=== PATIENT | male | born 2000 | race Caucasian/White ===

== ENCOUNTER 2021-12-16 15:16 | Emergency (ER) | payer OTHER, SELFPAY ==
[2021-12-16 15:40] VITALS: BP 142/80; PULSE 72; RESP 19; TEMP 36.9; O2SAT 97; BMI 17.4
--- NOTE | 2021-12-16 16:02 | HMH.EDUTC ---
[facility] [place] Disposition Clinical Impression: Sinusitis Qualifiers: Sinusitis location: unspecified location Chronicity: unspecified Qualified Code(s): J32.9 - Chronic sinusitis, unspecified Disposition: Home, Self-Care Condition on Discharge: Good Instructions: Sinusitis, DI for Sinusitis Additional Instructions: *Monitor Temp, Over the counter Motrin or Tylenol as directed/as needed Tylenol every 4 hours and Motrin every 6 hours (as long as your family doctor has told you that you can take it) for fever or pain. and straight to ER if unable to lower temp less than 101.0 after medication given *Warm salt water gargles may help to soothe the throat *Throat Lozenges *Warm fluids like tea with honey may help to soothe the throat *Sleep elevated *Humidifier/Vaporizer Follow up IMMEDIATELY for new or worsening symptoms or no Noticeable improvement over the next 48-72 hours. 911 for difficulty breathing or swallowing You were tested for today for Upper Respiratory Panel with COVID19 your test result should be back in the next 24-48 hours, your results will be available to view on the [facility] My Health Portal Make sure to take your Vitamins Vit. C Vit D and Zinc if you can take them Referrals: Provider,Referral, MD [Primary Care Provider] - As needed Forms: Work/School Release Time of Disposition: 16:07 Medical Decision Making - Chandler Inquiry Pt receiving controlled substance: No Chandler was queried for this patient: No Vital Signs: 12/16/21 15:40 Temperature 98.4 F Temperature Source Oral Pulse Rate [Right Brachial] 72 Respiratory Rate 19 Blood Pressure [Right Arm] 142/80 H Blood Pressure Mean [Right Arm] 100 Blood Pressure Source [Right Arm] Automatic Cuff Blood Pressure Position [Right Arm] Sitting 02 Sat by Pulse Oximetry 97 Oxygen Delivery Method Room Air Orders (Tests/Meds): ORDERS Category Date Time Status Full Resp Panel w/COVID ([facility]) Routine Lab 12/16/21 15:39 Ordered [facility] [place] HPI - General Stated complaint: congestion Time Seen by Provider: 12/16/21 16:02 Mode of Arrival: Ambulatory Source of Information: Patient Limitations: No Limitations Description of Symptoms (Recalled from Triage Doc. by RN): PATIENT C/O RUNNY NOSE, CHEST CONGESTION, AND SOA HEENT Symptoms (Recalled from RN notes): Yes Resp Symptoms (Recalled from RN notes): Yes Skin Symptoms (Recalled from RN notes): No MS Symptoms (Recalled from RN notes): No Functional Status (Recalled from RN notes): WNL - History of Present Illness Provider Complaint: Patient state that he has been having sinus congestion and pressure, runny nose, cough and feels a little SOA at times when he sits certain ways States that today he was having pressure like feeling behind his eyes so he came in to get checked State that he has been sick about a week - Related Data Allergies Allergy/AdvReac Type Severity Reaction Status Date / Time adhesive [ADHESIVE] Allergy Mild Verified 08/24/18 13:00 amoxicillin [AMOXICILLIN] Allergy Mild Verified 08/24/18 13:00 ampicillin Allergy Verified 08/24/18 13:00 - Worker's Comp Is this a Worker's Comp case?: No [facility] History - Hepatitis A Screen Attestation statement:: This patient has been screened for Hepatitis A risk factors. I have reviewed the patient's past medical history: Yes Medical History: Denies:: Cancer, Diabetes Mellitus Type 1, Diabetes Mellitus Type 2, MRSA Amputation: No Fractures: No - Social History Smoking Status: Never smoker Alcohol Intake: never Occupational Status: other ROS Obtained: Yes All systems reviewed & no additional complaints, Yes Systems reviewed as appropriate & no additional complaints - Constitutional Constitutional: Reports system reviewed and no additional complaints, except as docu, Denies body ache, Denies chills, Reports fever(s), Reports headache(s) - ENT Ears, Nose, Mouth, and Throat: Reports system reviewed and no additional complaints, except as do
[2021-12-16 16:08] VITALS: BP 142/80; PULSE 72; RESP 19; TEMP 36.9; O2SAT 97
[2021-12-16 16:11] LABS: Adenovirus,PCR Not Detected (NotDetected); Bordetella Pertussis Not Detected (NotDetected); Chlamydophila Pneumoniae, PCR Not Detected (NotDetected); Coronavirus 19, PCR Not Detected (NotDetected); Coronavirus 229E Not Detected (NotDetected); Coronavirus NL63 Not Detected (NotDetected); Coronavirus OC43 Not Detected (NotDetected); Coronovirus HKU1,PCR Not Detected (NotDetected); Human Metapneumovirus Not Detected (NotDetected); Influenza A, PCR Not Detected (NotDetected); Influenza AH1, 2009 Not Detected (NotDetected); Influenza AH1, PCR Not Detected (NotDetected); Influenza AH3,PCR Not Detected (NotDetected); Influenza B, PCR Not Detected (NotDetected); Mycoplasma Pneumoniae, PCR Not Detected (NotDetected); Parainfluenza 1, PCR Not Detected (NotDetected); Parainfluenza 2, PCR Not Detected (NotDetected); Parainfluenza 3, PCR Not Detected (NotDetected); Parainfluenza 4, PCR Not Detected (NotDetected); Rhinovirus/Enterovirus Not Detected (NotDetected)
[2021-12-16 18:22] LABS: Respiratory Syncytial Virus Detected (NotDetected)
== END 2021-12-16 16:10 | disposition home or self-care (01) ==
PROVIDERS: Emergency Provider Nurse Practitioner
DX: J32.9 Chronic sinusitis, unspecified (principal); Z88.1 Allergy status to other antibiotic agents
CPT/HCPCS: 87581; 87632; 87798; 99212; C9803; G0463; U0003; U0005

== ENCOUNTER 2022-06-10 12:37 | Emergency (ER) | payer OTHER, SELFPAY ==
--- NOTE | 2022-06-10 14:35 | EXP.UTC ---
Discharge Plan Disposition Patient Disposition: Home, Self-Care Condition: Good Prescriptions Prescriptions: New benzonatate [benzonatate] 100 mg capsule 100 mg PO TIDP PRN (Reason: Cough) Qty: 30 0RF ondansetron 4 mg Tablet,Disintegrating 4 mg PO Q8H PRN (Reason: Nausea) Qty: 20 0RF No Action azithromycin 250 MG tablet 250 mg PO DIRECTED Qty: 6 0RF Rx Instructions: Take two (2) tablets on day #1, then one (1) tablet day #2 thru #5 methylprednisolone 4 MG tablet 4 mg PO DIRECTED Qty: 21 0RF Rx Instructions: Take as directed on package instructions Referrals Follow up/Referrals: Provider,Referral, MD [Primary Care Provider] - See instructions Activity Restrictions/Add. Instructions Additional Instructions/Restrictions: Drink plenty of fluids. Take tylenol or ibuprofen for pain or fever. Take the medications as directed. Follow up with your regular doctor. GO TO THE ER FOR ANY WORSENING SYMPTOMS Clinical Impressions Clinical Impression: Viral syndrome, Exposure to 2019 novel coronavirus Stand Alone Forms Stand Alone Forms: Work/School Release Instructions Patient Instructions: Coronavirus Disease 2019, Preventing the Spread of Coronavirus Discharge Instructions Discharge ED Provider: Juan Carlos Vivar [facility] General Stated complaint: covid test Time Seen by Provider: 06/10/22 14:35 History of Present Illness Provider Complaint: He states that for the past 2 days he has had chills, fever, body aches and he has felt very bad. He denies any shortness of breath or significant cough. Related Data Previous Rx's Medication Instructions Recorded azithromycin 250 mg tablet 250 mg PO DIRECTED #6 tabs 12/16/21 methylprednisolone 4 mg tablet 4 mg PO DIRECTED #21 tabs 12/16/21 benzonatate 100 mg capsule 100 mg PO TIDP PRN Cough #30 caps 06/10/22 ondansetron 4 mg disintegrating 4 mg PO Q8H PRN Nausea #20 tabs 06/10/22 tablet Allergies Allergy/AdvReac Type Severity Reaction Status Date / Time adhesive [ADHESIVE] Allergy Mild Verified 06/10/22 14:46 amoxicillin [AMOXICILLIN] Allergy Mild Verified 06/10/22 14:46 ampicillin Allergy Verified 06/10/22 14:46 [facility] Social History Smoking Status: Never smoker alcohol intake: never current occupational status: other Travel in the last 8 weeks: None ROS Obtained: Yes All systems reviewed & no additional complaints except as documented Constitutional Constitutional: Reports chills and Reports fever(s) Eyes Eyes: Denies eye discharge ENT Ears, Nose, Mouth, and Throat: Reports as per HPI Cardiovascular Cardiovascular: Denies chest pain Respiratory Respiratory: Denies chest congestion and Reports cough Gastrointestinal Gastrointestingal: Reports nausea; Denies abdominal pain, constipation, cramping, diarrhea or vomiting Musculoskeletal Musculoskeletal: Denies arthralgias Integumentary/Breasts Skin/Breast: Denies rash Neurologic Neurologic: Denies paresthesias Physical Exam General General appearance: alert and in no apparent distress Head Head exam: atraumatic, normocephalic and normal inspection Eye Eye exam: Present normal appearance, PERRL and EOMI ENT ENT exam: Present normal exam, normal oropharynx, mucous membranes moist, TM's normal bilaterally and normal external ear exam Neck Neck exam: Present normal inspection, full ROM and trachea midline; Absent meningismus or lymphadenopathy Chest Chest inspection: Present normal inspection and symmetric chest wall rise; Absent tenderness Respiratory Respiratory exam: Present normal lung sounds bilaterally; Absent respiratory distress Cardiovascular Cardiovascular exam: Present regular rate and normal rhythm; Absent JVD Abdominal Exam Abdominal exam: Present soft and normal bowel sounds; Absent distention, tenderness or guarding Extremities Exam Extremities exam: Present normal insp
[2022-06-10 14:45] VITALS: BP 121/75; PULSE 99; RESP 18; TEMP 36.7; O2SAT 97; BMI 17.6
[2022-06-10 14:53] LABS: UTC Strep Screen (Rapid) Negative (Negative)
[2022-06-10 15:46] LABS: UTC Influenza A Antigen Negative (Negative); UTC Influenza B Antigen Negative (Negative)
[2022-06-10 15:54] VITALS: BP 121/75; PULSE 99; RESP 18; TEMP 36.7
== END 2022-06-10 15:55 | disposition home or self-care (01) ==
PROVIDERS: Emergency Provider Nurse Practitioner Family
DX: Z20.822 Contact with and (suspected) exposure to COVID-19 (principal)
CPT/HCPCS: 87804; 87880; C9803; U0003; U0005

== ENCOUNTER 2025-06-12 14:48 | Emergency (ER) | payer MEDICAID, SELFPAY ==
[2025-06-12 15:00] VITALS: BP 133/89; PULSE 100; RESP 22; TEMP 36.8; O2SAT 100; BMI 16.2
--- NOTE | 2025-06-12 15:15 | ED_ITS ---
Discharge Plan Disposition Patient Disposition: Home, Self-Care Prescriptions Prescriptions: New doxycycline hyclate 100 mg tablet 100 mg PO BID 14 Days Qty: 28 0RF No Action azithromycin 250 MG tablet 250 mg PO DIRECTED Qty: 6 0RF Rx Instructions: Take two (2) tablets on day #1, then one (1) tablet day #2 thru #5 methylprednisolone 4 MG tablet 4 mg PO DIRECTED Qty: 21 0RF Rx Instructions: Take as directed on package instructions benzonatate [benzonatate] 100 mg capsule 100 mg PO TIDP PRN (Reason: Cough) Qty: 30 0RF ondansetron 4 mg Tablet,Disintegrating 4 mg PO Q8H PRN (Reason: Nausea) Qty: 20 0RF Referrals Follow up/Referrals: Provider,Referral, MD [Primary Care Provider, Medical] - See instructions Activity Restrictions/Add. Instructions Additional Instructions/Restrictions: You will need to return to the emergency department for additional doses of the rabies vaccine on the following dates: 06/15 06/19 06/26 Keep the wound clean by using gentle soap and water on the area. Take the antibiotic as prescribed to help prevent infection. You can take Tylenol and ibuprofen to help with pain. If you develop any new or worsening signs of infection, such as increased redness or swelling, pus draining from the wound, fever, return to the emergency department for evaluation. Clinical Impressions Clinical Impression: Dog bite Instructions Patient Instructions: Animal Bites Print Language Print Language: Qatari Discharge ED Provider: Michael Marquez Adult HPI General Chief complaint: Animal Bite Stated complaint: AO 06/12 Dog Attack - Left Leg Injury Time Seen by Provider: 06/12/25 14:56 Mode of Arrival: Wheelchair Source of Information: Patient Description of Symptoms (Recalled from ER Triage Doc. by RN): Pt was bit by an unknown dog a few hours ago on his way to work. Pt has a puncture on his left thigh area with minimal c/o pain. Pt also presented with c/o of low blood sugar, upon fingerstick, pt's glucose was 101. History of Present Illness HPI narrative: Pedro Luis Spivey is a 24y male with no significant past medical history who presents to the emergency department for complaints of a dog bite to his left leg. Patient states that he has a several hour walking commute to work and was on his way to work today when 2 [place] wellington's attacked him. He does not know the owners. He states that one of them bit him on the back of the leg. He does state that he was wearing several layers of clothing at the time. He notes a cut behind the lateral aspect of his left knee. He was able to walk afterwards and states that he is having some pain in the area. He does not know the vaccination status of the dogs. He does not know when his last tetanus shot was. Related Data Previous Rx's ?Medication ?Instructions ?Recorded azithromycin 250 mg tablet 250 mg PO DIRECTED #6 ta bs 12/16/21 methylprednisolone 4 mg tablet 4 mg PO DIRECTED #21 tabs 12/16/21 benzonatate 100 mg capsule 100 mg PO TIDP PRN Cough #3 0 caps 06/10/22 ondansetron 4 mg disintegrating 4 mg PO Q8H PRN Nausea #20 tabs 06/10/22 tablet doxycycline hyclate 100 mg tablet 100 mg PO BID 14 day s #28 tabs 06/12/25 Allergies Allergy/AdvReac Type Severity Reaction Status Date / Time adhesive (ADHESIVE) Allergy Mild Verified 06/10/22 14:46 amoxicillin (AMOXICILLIN) Allergy Mild Verified 06/10/22 14:46 ampicillin Allergy Verified 06/10/22 14:46 PFSH PFS Disclaimer: The information contained in this section may have been updated after the patient was seen, as this information can be updated by other users. Social History Smoking Status: Current every day smoker alcohol intake: never current occupational status: other Travel in the last 8 weeks?: None Have you lived/traveled outside [place] in past 30 days?: No Contact w/someone who lives/traveled outside US past 30 days?: No Exposure to someone with infectious disease in past 14 days?: No Do you have a fever (greater than 100.4 F or 38 C)?: No Have you tested positive for COVID-19?: No Exposed to someone with COVID-19 in past 14 days?: No Do you have a sore throat?: No Do you have a cough?: No Do you have any weakness?: No Do you have any diarrhea?: No Are you experiencing any unusual bleeding?: No Do you have any muscle aches/pain?: No Do you have any abdominal pain?: No Are you experiencing loss of taste or smell?: No ROS Obtained: Yes Systems reviewed as appropriate & no additional complaints except as documented Physical Exam General General appearance: alert and in no apparent distress Head Head exam: atraumatic Eye Eye exam: Present normal appearance ENT ENT exam: Present normal external ear exam Neck Neck exam: Present full ROM Chest Chest inspection: Present symmetric chest wall rise Respiratory Respiratory exam: Present normal lung sounds bilaterally; Absent respiratory distress Cardiovascular Cardiovascular exam: Present regular rate and normal rhythm Abdominal Exam Abdominal exam: Present soft; Absent tenderness or guarding exam: Present deferred Extremities Exam Extremities exam: Present normal inspection Expanded Lower Extremity Exam Left: Leg image: 2 1. small superficial skin abrasion, does not track deep on exam, no bleeding. Full range of motion with flexion extension of the left knee. 2+ DP and PT pulses. Dorsiflexion and plantarflexion at the ankle intact. Sensation grossly intact. Back Exam Back exam: Present normal inspection Neurological Exam Neurological exam: Present alert and oriented X3 Psychiatric Psychiatric exam: Present normal affect Skin Skin exam: Present warm and dry Medical Decision Making Medical Records Screening: Per USPSTF and CDC recommendations, given the prevalence of disease in our region, it is our hospital?s policy to screen for HIV and viral Hepatitis for all patients aged 18 and over and those with ongoing risk factors. Chandler Inquiry Pt receiving controlled substance: No Vital Signs: 06/12/25 15:00 Temperature 98.2 F Temperature Source Oral Pulse Rate [Right] 100 H Respiratory Rate 22 Blood Pressure [Right Arm] 133/89 Blood Pressure Mean [Right Arm] 103 Blood Pressure Source [Right Arm] Automatic Cuff Blood Pressure Position [Right Arm] Sitting 02 Sat by Pulse Oximetry 100 Oxygen Delivery Method Room Air Orders (Tests/Meds): ED MEDICATIONS Discontinued Medications Generic Name Dose Route Start Last Admin Trade Name Freq PRN Reason Stop Dose Admin Acetaminophen 1,000 mg 06/12/25 15:14 Acetaminophen 500mg Tab PO 06/12/25 15:15 ONCE ONE Ibuprofen 600 mg 06/12/25 15:14 Ibuprofen 600 Mg Tablet PO 06/12/25 15:15 ONCE ONE Rabies Immune Globulin 1,100 unit 06/12/25 15:14 Rabies Immune Globulin/Pf 300 Unit/Ml 5ml Vial IM 06/12/25 15:15 ONCE ONE Rabies Vaccine 2.5 unit 06/12/25 15:14 Rabies Vaccine (Pcec)/Pf 2.5 Unit Vial IM 06/12/25 15:15 .ONCE ONE Tetanus/Reduced Diphtheria/Acell Pertussis 0.5 ml 06/12/25 15:14 Tet/Diphth/Pert-Adult 0.5ml Syringe IM 06/12/25 15:15 .ONCE ONE Medical Decision Narrative: Pedro Luis Spivey is a 24y male with no significant past medical history who presents to the emergency department for complaints of a dog bite to his left leg. Patient states that he has a several hour walking commute to work and was on his way to work today when 2 [place] wellington's attacked him. He does not know the owners. He states that one of them bit him on the back of the leg. He does state that he was wearing several layers of clothing at the time. He notes a cut behind the lateral aspect of his left knee. He was able to walk afterwards and states that he is having some pain in the area. He does not know the vaccination status of the dogs. He does not know when his last tetanus shot was. On arrival, patient is resting comfortably, in no acute distress. He has a small superficial skin tear/abrasion over his left lateral/posterior distal thigh. He has full range of motion at the knee and ankles. 2+ DP and PT pulses. Sensation is grossly intact. The wound was probed using Q-tip and does not track deep. There is no active bleeding. This is the only wound the patient has. Given patient is not up-to-date on vaccines, will update tetanus shot as well as provide rabies immunoglobulin and initiate rabies vaccine series after irrigating the wound with sterile water and Hibiclens. Patient will be given oral ibuprofen and Tylenol for pain. I do not feel that any imaging studies or laboratory studies are indicated at this time as the wound does not track deep and this would not change ED management. Return precautions were given. All questions were answered. He demonstrated understanding and was in agreement this plan. Patient will be discharged with a prescription for doxycycline. Patient is allergic to amoxicillin. Critical Care Critical Care Time Critical Care Time: No
[2025-06-12] MEDS: ACETAMINOPHEN 500MG TAB 1000 MG PO (15:43)
[2025-06-12] MEDS: IBUPROFEN 600 MG TABLET PO (15:43)
[2025-06-12] MEDS: TET/DIPHTH/PERT-ADULT 0.5ML SYRINGE 0.5 ML IM (15:44)
[2025-06-12] MEDS: RABIES IMMUNE GLOBULIN/PF 300 UNIT/ML 5ML VIAL 1100 UNIT IM (15:48)
[2025-06-12] MEDS: RABIES VACCINE (PCEC)/PF 2.5 UNIT VIAL IM (15:49)
[2025-06-12 16:00] VITALS: BP 127/70; PULSE 112; RESP 20; TEMP 36.6; O2SAT 100
== END 2025-06-12 16:24 | disposition home or self-care (01) ==
PROVIDERS: Emergency Provider Student in an Organized Health Care Education/Training Program
DX: S81.852A Open bite, left lower leg, initial encounter (principal); W54.0XXA Bitten by dog, initial encounter
CPT/HCPCS: 90375; 90471; 90472; 90675; 90715; 96372; 99284

== ENCOUNTER 2025-06-15 12:41 | Outpatient (CLI) | payer MEDICAID, SELFPAY ==
[2025-06-15 13:20] VITALS: BP 127/78; PULSE 94; RESP 18; TEMP 36.8; O2SAT 98
[2025-06-15] MEDS: RABIES VACCINE (PCEC)/PF 2.5 UNIT VIAL IM (13:20)
== END 2025-06-15 23:59 | disposition home or self-care (01) ==
LOC: INF 12:44
PROVIDERS: Visit Provider Student in an Organized Health Care Education/Training Program
DX: T14.8XXA Other injury of unspecified body region, initial encounter (principal); W54.0XXA Bitten by dog, initial encounter
CPT/HCPCS: 90471; 90675; 96372

== ENCOUNTER 2025-06-15 23:04 | Emergency (ER) | payer MEDICAID, SELFPAY ==
--- NOTE | 2025-06-15 23:00 | ECG_ITS ---
APPROVED REPORT Exam: Resting ECG HR:77 bpm ECG Measurements Heart Rate [address] 131 P 67 QRSd 102 QRS 101 QT 345 T 70 QTc 377 Conclusion SINUS RHYTHM WITH MARKED SINUS ARRHYTHMIA POSSIBLE LEFT ATRIAL ENLARGEMENT [-0.1mV P-WAVE IN V1/V2] RIGHT AXIS DEVIATION [QRS AXIS > 100] INCOMPLETE RIGHT BUNDLE BRANCH BLOCK [90+ ms QRS DURATION, TERMINAL R IN V1/V2, 40+ ms S IN I/aVL/V4/V5/V6] ABNORMAL ECG UNCONFIRMED REPORT Electronically signed by : LEE AIKEN, 06/16/2025 02:24:59
[2025-06-15 23:07] VITALS: BP 153/80; PULSE 84; RESP 17; TEMP 36.8; O2SAT 99; BMI 14.6
--- NOTE | 2025-06-15 23:08 | XR_ITS ---
PROCEDURE INFORMATION: Exam: XR Chest Exam date and time: 06/15/2025 11:34 PM Age: 24 years old Clinical indication: Pain; Chest pressure; Additional info: Chest pain TECHNIQUE: Imaging protocol: Radiologic exam of the chest. Views: 1 view. COMPARISON: No relevant prior studies available. FINDINGS: Lungs: Unremarkable. No consolidation. Small calcified granuloma lateral left mid lung zone. Pleural spaces: There is a left apical pneumothorax. No pleural effusion. Heart/Mediastinum: Unremarkable. No cardiomegaly. Vasculature: Unremarkable. Bones/joints: Unremarkable. IMPRESSION: Left apical pneumothorax approximately 18% in volume.
[2025-06-15 23:12] VITALS: BP 153/80; PULSE 84; RESP 17; TEMP 36.8; O2SAT 100
[2025-06-15 23:13] VITALS: PULSE 84
[2025-06-15] MEDS: ACETAMINOPHEN 500MG TAB 1000 MG PO (23:28)
[2025-06-15] MEDS: KETOROLAC 30MG/ML VIAL 30 MG IV (23:28)
[2025-06-15] MEDS: BELLADONNA ALKALOIDS 60 ML ML PO (23:28)
[2025-06-15 23:31] VITALS: BP 126/86; PULSE 105; RESP 18; O2SAT 99
--- NOTE | 2025-06-15 23:44 | CT_ITS ---
PROCEDURE INFORMATION: Exam: CT Chest Without Contrast; Diagnostic Exam date and time: 06/16/2025 12:09 AM Age: 24 years old Clinical indication: Other: Eval pneumothorax; Additional info: Evaluate pneumothorax TECHNIQUE: Imaging protocol: Diagnostic computed tomography of the chest without contrast. Radiation optimization: All CT scans at this facility use at least one of these dose optimization techniques: automated exposure control; mA and/or kV adjustment per patient size (includes targeted exams where dose is matched to clinical indication); or iterative reconstruction. COMPARISON: CR XR CHEST PORTABLE 06/15/2025 11:34 PM FINDINGS: Lungs: There is a peripheral calcified granuloma within the left upper lobe. No consolidation. No mass. Pleural spaces: A small left pneumothorax is demonstrated correlating with the recent radiograph. Small apical and subpulmonic components are noted. No right-sided pneumothorax. No pleural fluid. Heart: Unremarkable. No cardiomegaly. No pericardial effusion. Coronary arteries: There are no coronary artery calcifications. Lymph nodes: Small calcified left hilar lymph nodes are noted. Vasculature: Unremarkable. No aortic aneurysm. Bones/joints: Unremarkable. No acute fracture. Soft tissues: Unremarkable. IMPRESSION: Known small left pneumothorax predominantly apical and subpulmonic in location. The volume is calculated to be approximately 18% based on the chest radiograph and it is certainly not larger than this based on the CT appearance.
[2025-06-16 00:07] LABS: Hematocrit 40.1 % (42.0-52.0); Hemoglobin 14.1 g/dL (14.1-18.0); Immature Granulocytes % 0.3 %; Mean Corpuscular HGB Conc 35.2 g/dL (31.8-35.4); Mean Corpuscular Hemoglobin 32.1 pg (27.0-31.2); Mean Corpuscular Volume 91.3 fl (80-94); Nucleated Red Blood Cells % 0 %; Platelet Count 281 K/mm3 (142-424); Red Blood Count 4.39 M/mm3 (4.60-6.20); Red Cell Distribution Width-SD 40.5 fL; White Blood Count 11.0 K/mm3 (4.8-10.8)
--- NOTE | 2025-06-16 00:08 | ED_ITS ---
Discharge Plan Disposition Patient Disposition: Home, Self-Care Prescriptions Prescriptions: No Action azithromycin 250 MG tablet 250 mg PO DIRECTED Qty: 6 0RF Rx Instructions: Take two (2) tablets on day #1, then one (1) tablet day #2 thru #5 methylprednisolone 4 MG tablet 4 mg PO DIRECTED Qty: 21 0RF Rx Instructions: Take as directed on package instructions doxycycline hyclate 100 mg tablet 100 mg PO BID 14 Days Qty: 28 0RF benzonatate [benzonatate] 100 mg capsule 100 mg PO TIDP PRN (Reason: Cough) Qty: 30 0RF ondansetron 4 mg Tablet,Disintegrating 4 mg PO Q8H PRN (Reason: Nausea) Qty: 20 0RF Referrals Follow up/Referrals: Provider,Referral, MD [Primary Care Provider, Medical] - See instructions Activity Restrictions/Add. Instructions Additional Instructions/Restrictions: Please follow-up with your primary care doctor for recheck of your potassium as well as a repeat chest x-ray. If your symptoms are worsening, recommend return to the ER promptly as your pneumothorax could be enlarging. Clinical Impressions Clinical Impression: Acute hypokalemia Pneumothorax Qualifiers: Pneumothorax type: spontaneous, primary Qualified Code(s): J93.11 - Primary spontaneous pneumothorax Print Language Print Language: Yoruba Discharge ED Provider: Manan Degroot Adult HPI General Chief complaint: Chest Pain Stated complaint: Chest Pain Time Seen by Provider: 06/15/25 23:05 Mode of Arrival: Wheelchair Source of Information: Patient Description of Symptoms (Recalled from ER Triage Doc. by RN): PT presents to the ED for stabbing L chest pain. PT stated he was just sitting and stood up and his CP started. History of Present Illness HPI narrative: 24-year-old male, being treated for recent dog bite, presents for chest pain. He reports stabbing left-sided chest pain. Started all of the sudden. Associated mild shortness of breath. No history of blood clot, no recent travel, no recent surgery. He was smoking weed when the pain started. Related Data Previous Rx's ?Medication ?Instructions ?Recorded azithromycin 250 mg tablet 250 mg PO DIRECTED #6 ta bs 12/16/21 methylprednisolone 4 mg tablet 4 mg PO DIRECTED #21 tabs 12/16/21 benzonatate 100 mg capsule 100 mg PO TIDP PRN Cough #3 0 caps 06/10/22 ondansetron 4 mg disintegrating 4 mg PO Q8H PRN Nausea #20 tabs 06/10/22 tablet doxycycline hyclate 100 mg tablet 100 mg PO BID 14 day s #28 tabs 06/12/25 Allergies Allergy/AdvReac Type Severity Reaction Status Date / Time adhesive (ADHESIVE) Allergy Mild Rash Verified 06/15/25 13:02 amoxicillin (AMOXICILLIN) Allergy Mild Other Verified 06/15/25 13:02 ampicillin Allergy Other Verified 06/15/25 13:02 PFSH [facility] Disclaimer: The information contained in this section may have been updated after the patient was seen, as this information can be updated by other users. Social History Smoking Status: Current every day smoker alcohol intake: never current occupational status: other Travel in the last 8 weeks?: None Have you lived/traveled outside [place] in past 30 days?: No Contact w/someone who lives/traveled outside [place] past 30 days?: No Exposure to someone with infectious disease in past 14 days?: No Do you have a fever (greater than 100.4 F or 38 C)?: No Have you tested positive for COVID-19?: No Exposed to someone with COVID-19 in past 14 days?: No Do you have a sore throat?: No Do you have a cough?: No Do you have any weakness?: No Do you have any diarrhea?: No Are you experiencing any unusual bleeding?: No Do you have any muscle aches/pain?: No Do you have any abdominal pain?: No Are you experiencing loss of taste or smell?: No ROS Obtained: Yes All systems reviewed & no additional complaints except as documented Physical Exam General General appearance: alert and in no apparent distress Head Head exam: atraumatic and normocephalic Eye Eye exam: Present normal appearance, PERRL and EOMI ENT ENT exam: Present normal oropharynx and normal external ear exam Neck Neck exam: Present normal inspection and full ROM Chest Chest inspection: Present normal inspection and symmetric chest wall rise; Absent tenderness Respiratory Respiratory exam: Present normal lung sounds bilaterally; Absent respiratory distress Cardiovascular Cardiovascular exam: Present regular rate and normal rhythm Abdominal Exam Abdominal exam: Present soft; Absent distention, tenderness or guarding Extremities Exam Extremities exam: Present normal inspection; Absent edema or joint swelling Back Exam Back exam: Present normal inspection; Absent tenderness Neurological Exam Neurological exam: Present alert and oriented X3; Absent motor sensory deficit Psychiatric Psychiatric exam: Present normal affect and normal mood Skin Skin exam: Present warm, dry and normal color Lymphatic Lymphatic Findings: no adenopathy Medical Decision Making Medical Records Medical records reviewed: Yes I reviewed the patient's medical records. Screening: Per USPSTF and CDC recommendations, given the prevalence of disease in our region, it is our hospital?s policy to screen for HIV and viral Hepatitis for all patients aged 18 and over and those with ongoing risk factors. [place] Inquiry Pt receiving controlled substance: No [place] was queried for this patient: No Vital Signs: 06/15/25 23:07 06/15/25 23:12 06/15/25 23:13 Temperature 98.3 F 98.3 F Temperature Source Oral Pulse Rate 84 84 Pulse Rate [Right] 84 Respiratory Rate 17 17 Blood Pressure 153/80 H Blood Pressure [Right Arm] 153/80 H Blood Pressure Mean [Right Arm] 104 02 Sat by Pulse Oximetry 99 100 Oxygen Delivery Method Room Air Room Air Oxygen Flow Rate (LPM) 06/15/25 23:31 06/16/25 00:22 06/16/25 01:43 Temperature Temperature Source Pulse Rate 105 H 76 73 Pulse Rate [Right] Respiratory Rate 18 10 L Blood Pressure 126/86 119/73 121/74 Blood Pressure [Right Arm] Blood Pressure Mean [Right Arm] 02 Sat by Pulse Oximetry 99 99 100 Oxygen Delivery Method Room Air Non-Rebreather Non-Rebreather Oxygen Flow Rate (LPM) 15 15 Lab Data Lab results reviewed: Yes I reviewed the patient's lab results. Lab Results 06/15/25 23:08: WBC 11.0 H, RBC 4.39 L, Hgb 14.1, Hct 40.1 L, MCV 91.3, MCH 32.1 H, MCHC 35.2, RDW 12.0, Plt Count 281, MPV 10.3, Neut % (Auto) 58.0, Lymph % (Auto) 32.9, [place] % (Auto) 5.9, Eos % (Auto) 2.1, Baso % (Auto) 0.8, Neut # (Auto) 6.4, Lymph # (Auto) 3.6, [place] # (Auto) 0.7, Eos # (Auto) 0.2, Baso # (Auto) 0.1, Sodium 135 L, Potassium 2.7 L*, Chloride 103, Carbon Dioxide 21 L, Anion Gap 13.7, BUN 15, Creatinine 0.90, Estimated Creat Clear 98, Estimated GFR 105, Est GFR ( Amer) 127, Glucose 135 H, Calcium 9.8, Magnesium 2.0, Total Bilirubin 0.8, AST 31, ALT 24, Alkaline Phosphatase 69, Troponin I < 0.01, Total Protein 8.2, Albumin 5.0, Globulin 3.2, Albumin/Globulin Ratio 1.6, Lipase 109, HCV Ab JOSE w/Rflx PCR Qn Negative, HIV Ag/Ab Combo Qual Negative 06/15/25 23:08 06/15/25 23:08 Orders (Tests/Meds): ED MEDICATIONS Discontinued Medications Generic Name Dose Route Start Last Admin Trade Name Freq PRN Reason Stop Dose Admin Acetaminophen 1,000 mg 06/15/25 23:08 06/15/25 23:28 Acetaminophen 500mg Tab PO 06/15/25 23:09 1,000 mg ONCE ONE Administration Belladonna Alkaloids 60 ml 06/15/25 23:08 06/15/25 23:28 Belladonna Alkaloids 60 Ml Ml PO 06/15/25 23:09 60 ml ONCE ONE Administration Potassium Chloride/Water 100 mls @ 100 mls/hr 06/16/25 00:23 06/16/25 01:42 Potassium Chloride 10meq/100ml Ivpb IV 06/16/25 02:22 100 mls/hr Q1H FARRAH Administration Ketorolac Tromethamine 30 mg 06/15/25 23:08 06/15/25 23:28 Ketorolac 30mg/Ml Vial IV 06/15/25 23:09 30 mg ONCE ONE Administration Potassium Chloride 60 meq 06/16/25 00:23 06/16/25 00:40 Potassium Chloride 20meq Tab PO 06/16/25 00:24 60 meq ONCE ONE Administration ORDERS Category Date Time Status CT chest wo con Stat Cat Scan 06/15/25 23:44 Completed CXR --portable [XR chest portable] Stat Exams 06/15/25 23:08 Completed CXR --portable [XR chest portable] Stat Exams 06/16/25 02:00 Completed CBC w/Auto Diff [Complete Blood Count Auto Diff] Stat Lab 06/15/25 23:08 Completed CMP [Comprehensive Metabolic Panel] Stat Lab 06/15/25 23:08 Completed HIV Combo Stat Lab 06/15/25 23:08 Completed Hepatitis C Ab Qual. W/ RFX Stat Lab 06/15/25 23:08 Completed Lipase Stat Lab 06/15/25 23:08 Completed Magnesium Stat Lab 06/15/25 23:08 Completed Troponin I Q3H Lab 06/15/25 23:08 Completed Medical Decision Narrative: 24-year-old male without significant past medical history presents for acute onset chest pain and shortness of breath after smoking weed. History was obtained via interactive discussion with patient. On arrival, patient is [afebrile, hemodynamically stable, satting appropriately, alert, oriented x4, GCS 15], moving all extremities spontaneously. Full physical exam performed and significant for clear lungs bilaterally Differential includes but is not limited to pneumothorax, pneumonia, musculoskeletal pain. Patient was given Tylenol, Toradol and GI cocktail for symptomatic management and correction of underlying abnormalities. Workup initiated including chest x- ray EKG CBC CMP noted. Patient is PERC negative and does not require D-dimer.. On re-evaluation, patient [remains afebrile, HD stable.] Laboratory workup independently interpreted by me and significant for negative initial troponin. Patient does have significant hypokalemia. Imaging independently interpreted by me and significant for small left-sided pneumothorax. A follow-up CT scan was obtained which shows a small left-sided pneumothorax. See radiology read for full review of final results. EKG independently interpreted by me and significant for normal sinus rhythm with sinus arrhythmia, incomplete right bundle-branch block. Chest tube was considered was considered, but deemed unnecessary due to small size and normal vital signs. Patient was placed on a nonrebreather. His potassium was replaced orally and IV. Repeat chest x-ray was obtained after over 2 hours of observation and it showed no significant interval change. Given this, patient was deemed appropriate for discharge with outpatient management. He was instructed to follow-up with a PCP for repeat chest x-ray as well as recheck of potassium. Patient was agreeable to plan and was discharged with strict return precautions for signs of worsening pneumothorax. Procedures Risk/Benefits of Procedure(s) Were Explained: Yes Critical Care Critical Care Time Critical Care Time: No
[2025-06-16 00:13] LABS: Alanine Aminotransferase 24 U/L (12-78); Albumin Level 5.0 g/dl (3.5-5.0); Albumin/Globulin Ratio 1.6 (1.1-1.8); Alkaline Phosphatase 69 U/L (38-126); Anion Gap 13.7 mEq/L (5-15); Aspartate Amino Transferase 31 U/L (17-59); Bilirubin,Total 0.8 mg/dl (0.2-1.3); Blood Urea Nitrogen 15 mg/dl (9-20); Calcium 9.8 mg/dl (8.4-10.2); Carbon Dioxide 21 mmol/L (22.0-30.0); Chloride 103 mmol/L (98-107); Creatinine Clearance Estimated 98 mL/min (50-200); Creatinine,Serum 0.90 mg/dl (0.66-1.25); Estimated Glomerular Filt Rate 105 ml/min (>60); GFR (African American) 127 ML/MIN (>60); Globulin 3.2 g/dL (1.3-3.2); Glucose 135 mg/dl (74-100); Lipase 109 U/L (23-300); Magnesium 2.0 mg/dl (1.6-2.3); Sodium 135 mmol/L (136-145); Total Protein,Serum 8.2 g/dl (6.3-8.2)
[2025-06-16 00:22] VITALS: BP 119/73; PULSE 76; RESP 10; O2SAT 99
[2025-06-16 00:22] LABS: Hepatitis C Ab Qual. W/ RFX NEGATIVE (Negative)
[2025-06-16 00:23] LABS: Potassium 2.7 mmoL/L (3.5-5.1)
--- NOTE | 2025-06-16 00:23 | PC.NURSE ---
reported critical K+ to MD Degroot.
[2025-06-16] MEDS: POTASSIUM CHLORIDE 20MEQ TAB 60 MEQ PO (00:40)
[2025-06-16 00:47] LABS: Troponin I < 0.01 ng/ml (0.00-0.034)
[2025-06-16 01:43] VITALS: BP 121/74; PULSE 73; O2SAT 100
--- NOTE | 2025-06-16 02:00 | XR_ITS ---
PROCEDURE INFORMATION: Exam: XR Chest Exam date and time: 06/16/2025 2:14 AM Age: 24 years old Clinical indication: Other: F/u pneumothorax; Additional info: Follow up, no chest tube TECHNIQUE: Imaging protocol: Radiologic exam of the chest. Views: 1 view. COMPARISON: 1. CR XR CHEST PORTABLE 06/15/2025 11:[address] CHEST WO CON 06/16/2025 12:09 AM FINDINGS: Lungs: Unremarkable. No consolidation. Pleural spaces: There is a persistent left apical pneumothorax. The pneumothorax measures 2.7 cm in craniocaudal dimension at the apex. No significant change. Heart/Mediastinum: Unremarkable. No cardiomegaly. Vasculature: Unremarkable. Bones/joints: Unremarkable. IMPRESSION: No significant change in the left apical pneumothorax.
[2025-06-16] MEDS: 0.9 % SODIUM CHLORIDE 1000ML 1,000 ML 100 ML IV (02:49)
[2025-06-16 02:51] VITALS: BP 113/77; PULSE 73; RESP 12; TEMP 36.6; O2SAT 100
== END 2025-06-16 03:05 | disposition home or self-care (01) ==
PROVIDERS: Emergency Provider Emergency Medicine
DX: J93.9 Pneumothorax, unspecified (principal); R07.9 Chest pain, unspecified; E87.6 Hypokalemia; R06.02 Shortness of breath; I49.9 Cardiac arrhythmia, unspecified; F17.210 Nicotine dependence, cigarettes, uncomplicated
CPT/HCPCS: 71045; 71250; 80053; 83690; 83735; 84484; 85025; 86803; 87389; 93005; 96361; 96365; 96366; 96375; 99285; J1885; J3480; J7030

== ENCOUNTER 2025-06-19 13:09 | Outpatient (CLI) | payer MEDICAID, SELFPAY ==
[2025-06-19 13:25] VITALS: BP 139/71; PULSE 81
[2025-06-19] MEDS: RABIES VACCINE (PCEC)/PF 2.5 UNIT VIAL IM (13:25)
== END 2025-06-19 23:59 | disposition home or self-care (01) ==
LOC: INF 13:10
PROVIDERS: Visit Provider Student in an Organized Health Care Education/Training Program
DX: T14.8XXA Other injury of unspecified body region, initial encounter (principal); W54.0XXA Bitten by dog, initial encounter; Z23 Encounter for immunization
CPT/HCPCS: 90471; 90675; 96372

== ENCOUNTER 2025-06-28 14:46 | Outpatient (CLI) | payer MEDICAID, SELFPAY ==
[2025-06-28 15:00] VITALS: BP 106/78; PULSE 84; RESP 18; TEMP 37; O2SAT 99
[2025-06-28] MEDS: RABIES VACCINE (PCEC)/PF 2.5 UNIT VIAL IM (15:00)
== END 2025-06-28 23:59 | disposition home or self-care (01) ==
LOC: INF 14:49
PROVIDERS: Visit Provider Student in an Organized Health Care Education/Training Program
DX: T14.8XXA Other injury of unspecified body region, initial encounter (principal); W54.0XXA Bitten by dog, initial encounter
CPT/HCPCS: 90471; 90675; 96372